=== PATIENT | female | born 1970 | race Caucasian/White ===

== ENCOUNTER 2020-02-29 08:30 | Outpatient (CLI) | payer OTHER, SELFPAY ==
--- NOTE | ~2020-02-29 | MM_ITS ---
EXAMINATION: MM screening [facility] w eladia HISTORY: Screening TECHNIQUE: Craniocaudal and mediolateral oblique 3-D tomosynthesis images were obtained and synthetic 2-D images were generated. CAD analysis was submitted and interpreted. COMPARISON: No prior mammogram is available for comparison at this institution. BREAST PARENCHYMAL COMPOSITION: The breasts are heterogeneously dense, which may obscure small masses . FINDINGS: There is no evidence of suspicious mass, calcification, or architectural distortion to sugg est malignancy in either breast. There has been no suspicious interval change. IMPRESSION: 1. No mammographic evidence of malignancy. 2. Recommend routine screening mammography in one year. BI-RADS Category 1: Negative Reviewed, dictated and finalized at location A. OR MARKETING ENGINEER
== END 2020-02-29 08:31 | disposition home or self-care (01) ==
LOC: ANHIMG 08:32
PROVIDERS: PCP Family Medicine; Visit Provider Nurse Practitioner
DX: Z12.31 Encounter for screening mammogram for malignant neoplasm of breast (principal)
CPT/HCPCS: 77063; 77067

== ENCOUNTER 2021-09-01 01:41 | Day surgery (SDC) | payer OTHER, SELFPAY ==
[2021-08-14 13:22] VITALS: BMI 23.5
[2021-09-01 06:20] VITALS: BP 128/63; PULSE 62; RESP 18; TEMP 36.4; O2SAT 98; BMI 24.0
[2021-09-01] MEDS: LACTATED RINGERS 1,000 ML 150 ML IV CONT (06:42)
--- NOTE | 2021-09-01 07:26 | WPDANESEPPF ---
Anes - Initial Pre Proc Eval Procedure: Operation Date: 09/01/21 07:30 Proposed Procedures p Screening Colonoscopy - Italo Bishop MD Date/Time: 09/01/21 07:26 Surgeon: Italo Bishop MD Pre Op Diagnosis: neoplasm screening Patient Data Age: 51 Gender: F Height: 1.7 m Weight: 69.7 kg Last Vital Signs Temp 97.5 F L 09/01/21 06:20 Pulse 62 09/01/21 06:20 Resp 18 09/01/21 06:20 BP 128/63 09/01/21 06:20 Pulse Ox 98 09/01/21 06:20 O2 Del Method Room Air 09/01/21 06:20 Allergies Allergy/AdvReac Type Severity Reaction Status Date / Time No Known Allergies Allergy Verified 09/01/21 06:24 Home Medications Medication Instructions Recorded Confirmed Type No Home Medications 09/01/21 09/01/21 History Patient hx anesthesia problems: none Family hx anesthesia problems: none Results Review: All pre-operative results and documents have been reviewed as part of the pre-operative evaluation. [facility] Past Medical History Medical History (Updated 09/01/21 @ 07:27 by Italo Bishop MD) Colon cancer screening Family History Family History (Updated 11/19/13 @ 07:13 by DOCTOR UNKNOWN) Father Family history of elevated blood lipids Grandparent Diabetes mellitus Social History Social History (Updated 09/08/19 @ 15:29 by Zhane Marshall) Smoking status: Never smoker Second hand tobacco smoke exposure: No Alcohol intake: never Alcohol use details: occasional Substance use: never Substance use type: does not use Living arrangements: with family Gender identity (if verbalized by the patient): Female Spiritual care concerns: No Anes - Eval Final PreProcedure Day of Procedure 09/01/21 07:26 Patient weight: normal Heart: regular rate and rhythm Lungs: clear to auscultation Airway: Mallampati scale class II Neurological: alert and oriented Last oral intake: >/= 8 hours ASA classification: II Emergent: no Anesthetic plan: proceed Anesthesia type and monitoring: general GIVS and standard monitoring Results Review: All pre-operative results and documents have been reviewed as part of the pre-operative evaluation. Informed Consent: The patient's anesthetic plan and its attendant risks and benefits were discussed with the patient/family/POA. Questions were solicited and answers provided to the satisfaction of the patient/family/POA.
--- NOTE | 2021-09-01 07:26 | PM.HPGS ---
History of Present Illness History of Present Illness Consent: Risks, benefits, and alternatives have been discussed and questions answered. Patient agrees to proceed with procedure. Chief complaint: neoplasm screening Narrative: Zhane Augustin is a 51 year old female here for first screening colonoscopy Review of Systems Constitutional: Constitutional: Denies headache(s) and Denies weakness Eyes: Eyes: Denies blurry vision ENT: Reports Normal hearing present, Denies headache(s) and Denies neck pain Cardiovascular: Cardiovascular: Denies chest pain and Denies dyspnea Respiratory: Respiratory: Denies dyspnea Gastrointestinal: Gastrointestinal: Reports no additional gastrointestinal complaints Genitourinary: Genitourinary: Denies dysuria Musculoskeletal: Musculoskeletal: Denies neck pain Integumentary/Breasts: Skin/Breast: Denies dry skin Neurologic: Reports Normal hearing present, Denies headache(s) and Denies weakness Psychiatric: Psychiatric: Denies anxiety Endocrine: Endocrine: Denies change in body appearance Hematologic/Lymphatic: Hematologic/Lymphatic: Denies easy bleeding Allergic/Immunologic: Allergic/Immunologic: Denies urticaria PMF Past Medical History Medical History (Updated 09/01/21 @ 07:27 by Italo Bishop MD) Colon cancer screening Family History Family History (Updated 11/19/13 @ 07:13 by DOCTOR UNKNOWN) Father Family history of elevated blood lipids Grandparent Diabetes mellitus Social History Social History (Updated 09/08/19 @ 15:29 by Zhane Marshall) Smoking status: Never smoker Second hand tobacco smoke exposure: No Alcohol intake: never Alcohol use details: occasional Substance use: never Substance use type: does not use Living arrangements: with family Gender identity (if verbalized by the patient): Female Spiritual care concerns: No Meds Home Medications and Allergies Home Medications Medication Instructions Recorded Confirmed Type No Home Medications 09/01/21 09/01/21 History Allergies Allergy/AdvReac Type Severity Reaction Status Date / Time No Known Allergies Allergy Verified 09/01/21 06:24 Vital Signs Vital Signs - 24 hr 09/01/21 06:20 Temperature 97.5 F L Pulse Rate 62 Respiratory Rate 18 Blood Pressure 128/63 Pulse Oximetry 98 Oxygen Delivery Room Air Exam Const: General: comfortable and no acute distress HENMT: General nose exam: Normal nares present Eyes: General: appearance normal, both eyes and all related structures Neck: Neck: no JVD Resp: Auscultation: clear to auscultation bilaterally Cardio: Rate: regular rate Rhythm: regular rhythm GI: Inspection: non-distended GI Palp: Yes Soft to palpation Skin: General skin exam: normal color Neuro: General: gait normal Speech: normal speech Extrem: General: normal to inspection Psych: Mental Status: mental status grossly normal Assessment and Plan Assessment and plan (1) Colon cancer screening: Code(s): Z12.11 - Encounter for screening for malignant neoplasm of colon Status: Acute Assessment and Plan: colonoscopy
[2021-09-01 07:43] VITALS: BP 84/43; PULSE 64; RESP 14; O2SAT 98
[2021-09-01 07:53] VITALS: BP 103/55; PULSE 58; RESP 16; O2SAT 100
[2021-09-01 08:03] VITALS: BP 112/61; PULSE 59; RESP 20; O2SAT 100
== END 2021-09-01 08:12 | disposition home or self-care (01) ==
PROVIDERS: PCP Family Medicine; Visit Provider Internal Medicine Gastroenterology
PROC: 0DJD8ZZ Inspection of Lower Intestinal Tract, Via Natural or Artificial Opening Endoscopic (ICD-10-PCS; CPT 45378; principal; 2021-09-01 07:30)
DX: Z12.11 Encounter for screening for malignant neoplasm of colon (principal); K64.8 Other hemorrhoids
CPT/HCPCS: 45378; J2704; J7120

== ENCOUNTER 2021-10-05 17:09 | Outpatient (CLI) | payer OTHER, SELFPAY ==
--- NOTE | ~2021-10-05 | DEXA_ITS ---
Bone Density Report Name: DILLON GIBSON Age: 51 Sex: Female Ethnicity: White Date of : 1970 Indication: postmenopausal; screening for osteoporosis; height loss; Referring Provider: ANDREW, HILARIA Study: Bone densitometry was performed. Exam Date: October 05, 2021 Accession number: [id number] Bone Density: Region BMD T-score Z-score Classification AP Spine(L1-L4) 1.132 0.8 1.5 Normal Femoral Neck (Left) 0.830 -0.2 0.6 Normal Total Hip (Left) 1.025 0.7 1.2 Normal Femoral Neck (Right) 0.793 -0.5 0.3 Normal Total Hip (Right) 1.024 0.7 1.2 Normal Total Hip Mean 1.024 0.7 1.2 Normal World Health Organization criteria for BMD impression classify patients as: Normal (T-score at or above -1.0), Osteopenia (T-score between -1.0 and -2.5), or Osteoporosis (T-score at or below -2.5). 10-year Fracture Risk: FRAX not reported because: All T-scores for Spine Total, Hip Total, Femoral Neck at or above -1.0 Clinical Information Provided by Patient: Patient maximum height was 67 Menopause Age: 48 No regular weight bearing exercise Drinks caffeinated beverages Onset of menses at age 14 Number of children 2 Impression: The patient has normal bone mass. Discussion: BONE DENSITY IS ABOVE THE MINIMUM DESIRABLE LEVEL AT ALL SKELETAL SITES TESTED. This patient?s bone mineral density is above the minimum desirable level (T-score -1.0 or better) at all sites measured. The patient should follow a healthful lifestyle (good nutrition with adequate calcium and vitamin D, and appropriate weight-bearing exercise). Follow-Up: Consider repeating this study in 5 years or sooner if there is some new clinical indication. Reported by: [facility] on 10/05/2021 5:34:00 PM. Reviewed, dictated and finalized at location A. [facility]
--- NOTE | ~2021-10-05 | MM_ITS ---
EXAMINATION: MM screening [facility] BI w eladia HISTORY: Screening mammogram TECHNIQUE: Craniocaudal and mediolateral oblique 3-D tomosynthesis images were obtained and synthetic 2-D images were generated. CAD analysis was submitted and interpreted. COMPARISON: 02/29/2020, 12/18/2018, 05/20/2018, 11/15/2017 BREAST PARENCHYMAL COMPOSITION: The breasts are heterogeneously dense, which may obscure small masses . FINDINGS: There is no suspicious mass, calcification, or architectural distortion to suggest malignan cy in either breast. There has been no suspicious interval change. IMPRESSION: 1. No mammographic evidence of malignancy. 2. Recommend routine screening mammography in one year. BI-RADS Category 1: Negative Reviewed, dictated and finalized at location A.
== END 2021-10-05 17:10 | disposition home or self-care (01) ==
LOC: ANHIMG 17:13
PROVIDERS: PCP Family Medicine; Visit Provider Nurse Practitioner
DX: Z12.31 Encounter for screening mammogram for malignant neoplasm of breast (principal); Z13.820 Encounter for screening for osteoporosis
CPT/HCPCS: 77063; 77067; 77080

== ENCOUNTER 2023-01-17 07:54 | Outpatient (CLI) | payer OTHER, SELFPAY ==
--- NOTE | ~2023-01-17 | MM_ITS ---
EXAMINATION: MM screening [facility] w eladia HISTORY: Screening mammogram TECHNIQUE: Craniocaudal and mediolateral oblique 3-D tomosynthesis images were obtained and synthetic 2-D images were generated. CAD analysis was submitted and interpreted. COMPARISON: 10/05/2021, 02/29/2020, 12/18/2018 screening mammogram examinations BREAST PARENCHYMAL COMPOSITION: The breasts are heterogeneously dense, which may obscure small masses . FINDINGS: There is a biopsy marker on the left; history of prior benign left breast biopsy. There is no evidence of suspicious mass, calcification, or architectural distortion to suggest malignancy in e ither breast. There has been no suspicious interval change. IMPRESSION: 1. No mammographic evidence of malignancy. 2. Recommend routine screening mammography in one year. BI-RADS Category 1: Negative Reviewed, dictated and finalized at location A.
== END 2023-01-17 07:55 | disposition home or self-care (01) ==
PROVIDERS: PCP Family Medicine; Visit Provider Nurse Practitioner
DX: Z12.31 Encounter for screening mammogram for malignant neoplasm of breast (principal)
CPT/HCPCS: 77063; 77067

== ENCOUNTER → 2023-09-17 13:18 | Outpatient (REF) | payer OTHER, SELFPAY | LOC: ANHLAB 13:18 | PROVIDERS: PCP Family Medicine; Visit Provider Plastic Surgery | DX: Z00.00 Encounter for general adult medical examination without abnormal findings (principal); D18.01 Hemangioma of skin and subcutaneous tissue | CPT/HCPCS: 88305 ==

== ENCOUNTER 2024-01-02 11:30 | Outpatient (CLI) | payer OTHER, SELFPAY ==
--- NOTE | ~2024-01-02 | XR_ITS ---
3 VIEWS LUMBAR SPINE Ordering provider: Gilda Bills MD History: . M54.50 - Low back pain, unspecified- LEFT SIDE PINCHING . Comparison: None. FINDINGS: VERTEBRAL BODIES: No visible fracture or subluxation. Nonunited apophysis in the superior endplate of L2 anteriorly. DISK SPACES: Narrowing of the disc L4-L5. Facet joint disease at the level of L3-4, L4-L5 and L5-S1. SOFT TISSUES: Normal. IMPRESSION: No acute osseous abnormality lumbar spine. Degenerative disc disease at the level of L4-L5. Reviewed, dictated and finalized at location A.
== END 2024-01-02 11:31 | disposition home or self-care (01) ==
LOC: ANHIMG 11:34
PROVIDERS: PCP Family Medicine; Visit Provider Family Medicine
DX: M51.369 Other intervertebral disc degeneration, lumbar region without mention of lumbar back pain or lower extremity pain (principal)
CPT/HCPCS: 72110

== ENCOUNTER 2024-01-20 07:20 | Outpatient (CLI) | payer OTHER, SELFPAY ==
--- NOTE | ~2024-01-20 | MM_ITS ---
EXAMINATION: MM screening [facility] BI w eladia HISTORY: Screening mammogram TECHNIQUE: Craniocaudal and mediolateral oblique 3-D tomosynthesis images were obtained and synthetic 2-D images were generated. CAD analysis was submitted and interpreted. COMPARISON: 01/17/2023, 10/05/2021, 02/29/2020 BREAST PARENCHYMAL COMPOSITION:Not Dense. There are scattered areas of fibroglandular density. FINDINGS: No suspicious mass, calcification, or architectural distortion are identified in either padmini ast to suggest malignancy. There has been no suspicious interval change. IMPRESSION: No mammographic evidence of malignancy. Recommend routine screening mammography in one year. BI-RADS Category 1: Negative Reviewed, dictated and finalized at location .
== END 2024-01-20 07:21 | disposition home or self-care (01) ==
LOC: ANHIMG 07:21
PROVIDERS: PCP Family Medicine; Visit Provider Nurse Practitioner
DX: Z12.31 Encounter for screening mammogram for malignant neoplasm of breast (principal)
CPT/HCPCS: 77063; 77067

== ENCOUNTER 2024-09-30 12:51 | Outpatient (CLI) | payer OTHER, SELFPAY ==
--- NOTE | ~2024-09-30 | MMUS_ITS ---
EXAMINATION: US breast LT limited, MM diagnostic payton LT w eladia HISTORY: Palpable left breast lump TECHNIQUE: Additional 3-D tomosynthesis images of the left breast were performed and synthetic 2-D im ages were generated. CAD analysis was submitted and interpreted. High resolution Limited left breast ultrasound was performed. COMPARISON: Comparison to multiple prior studies sequentially, with oldest reviewed study dated 12/18. BREAST PARENCHYMAL COMPOSITION: Not dense: There are scattered areas of fibroglandular density. FINDINGS: MAMMOGRAPHIC FINDINGS: There are no new masses, calcifications or architectural distortion in the left breast to suggest mal ignancy. ULTRASOUND: Limited left breast ultrasound: At 7:00, 6 cm from the nipple there is an oval circumscribed hyperech oic mass measuring 1.1 x 1.1 x 0.5 cm with parallel orientation, no internal vascularity and no poste rior features, most compatible with benign lipoma. No suspicious masses to suggest malignancy. IMPRESSION: 1. No evidence for malignancy in the left breast. 2. Routine yearly screening mammogram and regular clinical breast examination are recommended. BI-RADS Category 2: Benign finding(s). Reviewed, dictated and finalized at location A. IMPRESSION: 1. No evidence for malignancy in the left breast. 2. Routine yearly screening mammogram and regular clinical breast examination a re recommended. BI-RADS Category 2: Benign finding(s).
--- OUTSIDE RECORDS SUMMARY | 2024-09-30 12:59 | XMS_ITS | Clinical Summary ---
Author Organization [facility] Address [facility] [place] [address] Care Team Providers Care Wire Stitcher Machine Name Role Phone Bradford Schilling MD Primary Care Provider [phone] Allergies No known active allergies Medications pravastatin (PRAVACHOL) 20 MG tabletIndications:M ixed hyperlipidemia Take 1 tablet (20 mg total) by mouth nightly at bedtime. 90 tablet 1 5 Active gabapentin (NEURONTIN) 100 MG capsuleIndications: Chronic midline low back pain with bilateral sciatica Take 1 capsule (100 mg total) by mouth nightly. 90 capsule 5 Active celecoxib (CELEBREX) 200 MG capsuleIndications: Chronic midline low back pain with bilateral sciatica Take 1 capsule (200 mg total) by mouth 2 (two) times daily as needed for Pain. 180 capsule 5 Active Active Problems Problem Noted Date Diagnosed Date Chronic midline low back pain with left-sided sc iatica 03/11/2024 Mixed hyperlipidemia 03/11/2024 Encounters Date Type Department Care Team Description 09/11/2024 Results Follow-Up [facility] Multispecialty Care - [address] [place] [address] Odalys Watters NP MRI LUMB SPINE WO CON 09/02/2024 12:43 PM CDT - 09/02/2024 11:59 PM CDT Hospital Encounter [facility] MRI [address] [place] [address] Bradford Schilling MD Discharge Disposition: Home or Self Care (Routine Discharge) 09/02/2024 Travel 08/26/2024 9:30 AM CDT Office Visit [facility] Physical [facility] [address] [address] Bradford Schilling MD Tolle, Lisa C, PT Lumbar Radiculopathy 08/26/2024 Travel 08/05/2024 8:00 AM CDT Office Visit [facility] Multispecialty Care [place] [address] [facility] [address] [place] [address] Bradford Schilling MD Follow Up; Back Pain; Mass (On breast left noticed a week ago ) 08/05/2024 Travel 07/29/2024 3:45 PM CDT Office Visit [facility] Physical [facility] [address] [address] Bradford Schilling MD Tolle, Lisa C, PT Back Pain 07/29/2024 Travel 07/22/2024 12:45 PM CDT Office Visit [facility] Physical [facility] [address] [address] Bradford Schilling MD Tolle, Lisa C, PT Back Pain 07/22/2024 Travel 07/15/2024 8:45 AM CDT Office Visit [facility] Physical Therapy [address] [address] Bradford Schilling MD Tolle, Lisa C, PT Back Pain 07/15/2024 Travel 07/08/2024 8:45 AM CDT Office Visit [facility] Physical [facility] [address] [address] Bradford Schilling MD Tolle, Lisa C, PT Back Pain 07/08/2024 Travel 07/01/2024 8:45 AM CDT Office Visit [facility] [address] [place] [address] Bradford Schilling MD Tolle, Lisa C, PT Back Pain 07/01/2024 Travel from Last 3 Months Immunizations Immunization Administration Dates Next Due Influenza Adult (Generic) 01/17/2022,01/31/2021 Tdap (Generic) 09/06/2020 Social History Tobacco Use Types Packs/Day Years Used Date Smoking Tobacco: Never Smokeless Tobacco: Never Tobacco Cessation:Counseling Given: Yes Comments:Counseled by Dr. Schilling. Alcohol Use Standard Drinks/Week Comments Yes 5.3 (1 standard drink = 0.6 oz p ure alcohol) socially/occasional AUDIT-C Answer Date Recorded Q1: How often do you have a drink containing alc ohol? Monthly or less 03/11/2024 Q2: How many drinks containi ng alcohol do you have on a typical day when you are drinking? 3 or 4 03/11/2024 Q3: How often do you have si x or more drinks on one occasion? Never 03/11/2024 PHQ-2 Answer Date Recorded Patient Health Questionnaire-2 Score 0 08/05/2024 Comments No Sex and Gender Information Value Date Recorded Sex Assigned at Female 08/05/2024 8:03 AM CDT Legal Sex Female 9:50 AM CDT Gender Identity Female 08/05/2024 8:03 AM CDT Sexual Orientation Straight 08/05/2024 8: 03 AM CDT Last Filed Vital Signs Vital Sign Reading Time Taken Comments Blood Pressure 110/62 08/05/2024 8:04 AM CDT Pulse 60 08/05/2024 8:04 AM CDT Temperature 36.9 C (98.5 F) 08/05/2024 8:04 AM CDT Respiratory Rate 16 08/05/2024 8:04 AM CDT Oxygen Saturation 98% 08/05/2024 8:04 AM CDT Inhaled Oxygen Concentration - - Weight 69.9 kg (154 lb 3.2 oz) 08/05/2024 8:04 A M CDT Height 170.2 cm (5' 7) 08/05/2024 8:04 AM CDT Body Mass Index 24.15 08/05/2024 8:04 AM CDT Plan of Treatment Upcoming Encounters Date Type Department Care Team (Late st Contact Info) Description 12/09/2024 8:20 AM CDT Office Visit [facility] Multispecialty Care - [address] [place] [address] Bradford Schilling MD [address] [facility] [address] [place] [address] Health Maintenance Due Date Last Done Comments Hepatitis B Vaccines (1 of 3 - 19+ 3-dose series) 1990 Cervical Cancer Screening Pa p with HPV Testing (Age 30 to 64) Every 5 Years 2001 Pneumococcal Vaccine: 50+ Ye ars (1 of 1 - PCV) 2021 Zoster Vaccines (1 of 2) 2021 COVID-19 Vaccine (2 - 2023-2 5 season) 2023 08/11/2020 Annual Physical 03/11/2025 03/11/2024 Mammogram Screening 01/19/2026 01/20/2024 Cervical Cancer Screening Pa p Smear (Age 30 to 64) Every 3 Years 08/04/2026 08/05/2023 Cervical Cancer Screening with HPV 08/04/2026 DTaP, Tdap and Td Vaccines ( 2 - Td or Tdap) 09/06/2030 09/06/2020 Colorectal Cancer Screening Colonoscopy (10 Years) 09/02/2031 09/01/2021 Hepatitis C Completed 03/11/2024 PHQ-2 (Physician [place]) Completed 08/05/2024 Meningococcal B Vaccine Aged Out No l onger eligible based on patient's age to complete this topic Meningococcal Vaccine Aged Out No cyril toya eligible based on patient's age to complete this topic RSV Immunizations Under 20 Months Aged Out No longer eligible based on patient's age to complete this topic Procedures Procedure Name Priority Date/Time Associated Diagnosis Comments MRI LUMB SPINE WO CON Routine 09/02/2024 1:19 PM CDT Chronic midline low back pain with bilateral sciatica HEPATITIS C ANTIBODY Routine 03/11/2024 11:37 AM VOCATIONAL AIDE Annual physical exam Establishing care with new doctor, encounter for General medical exam Encounter for hepatitis C screening test for low risk patient Drug therapy MAMMOGRAM GENERIC (SCAN ORDER) 01/20/2024 OUTSIDE CYTOPATH CERV/VAG INTERPRET (PAP) (SCAN ORDER) 08/05/2023 COLONOSCOPY GENERIC (SCAN ORDER) 09/01/2021 from Last 3 Months or Most Recently Relevant to Health Maintenance Results * MRI LUMB SPINE WO CON (09/02/2024 1:19 PM CDT) Anatomical Region Laterality Modality Spine Magnetic Resonan ce 09/09/2024 8:55 PM CDT Impressions 09/09/2024 8:59 PM CDT IMPRESSION: 1. Multilevel degenerative changes in the lumbar spine, as detailed above. Referred By: BRADFORD SCHILLING Interpreted By: Von Zapata MD, 09/09/2024 8:55 PM Narrative 09/09/2024 8:[address] PM [address]T [address] [address] INDICATION: Pain and numbness in left lower leg. EXAMINATION: MRI lumbar spine without contrast. TECHNIQUE: Multiplanar and multisequence MRI images of the lumbar spine were obtained without contrast. COMPARISON: None FINDINGS: There are 5 lumbar type vertebral bodies designated as L1 through L5; using this numbering system, the conus medullaris terminates at T12-L1 and appears unremarkable. There is slight anterolisthesis of L4 on L5. Otherwise the lumbar vertebral alignment, vertebral body heights, and facet alignment are maintained. Possible degenerative synovial cyst along the anterior aspects of the L4-L5 facet articulations, larger on the left. Additional synovial cyst seen along the posterior aspect of the L4-L5 facets. Multilevel degenerative changes are evident in the lumbar spine with disc degeneration, endplate osteophytes, ligamentum flavum thickening, and facet hypertrophy noted. Multilevel disc desiccation. Imaged portions of the soft tissues reveal no acute findings. Small right renal cysts. T12-L1: Tiny disc bulge. Mild ligamentous and facet hypertrophy. No canal or foraminal narrowing. L1-L2: Disc bulge with extension into the foramina. Mild ligamentous and facet hypertrophy. No canal or foraminal narrowing. L2-L3: Tiny disc bulge. Mild ligamentous and facet hypertrophy. No canal or foraminal narrowing. L3-L4: Mild disc bulge with extension into the foramina. Ligamentous and facet hypertrophy. No canal or foraminal narrowing. L4-L5: Slight anterolisthesis. Disc bulge with extension into the foramina. Possible degenerative synovial cysts along the anterior aspects of the facet articulations, larger on the left. Additional synovial cysts suggested along the posterior aspects of the bilateral L4-L5 facet articulations. Ligamentum flavum thickening. Prominent facet arthropathy with bilateral facet joint synovial effusions. Mild canal stenosis. Asymmetric encroachment of the left lateral recess. Minimal if any foraminal narrowing. L5-S1: Mild disc bulge. Facet hypertrophy. No significant canal or foraminal narrowing. Procedure Note Von Zapata MD - 09/09/[address] [address] INDICATION: Pain and numbness in left lower leg. EXAMINATION: MRI lumbar spine without contrast. TECHNIQUE: Multiplanar and multisequence MRI images of the lumbar spine were obtainedwithout contrast. COMPARISON: None FINDINGS: There are 5 lumbar type vertebral bodies designated as L1 through L5;using this numbering system, the conus medullaris terminates at T12-L1 andappears unremarkable. There is slight anterolisthesis of L4 on L5. Otherwise the lumbarvertebral alignment, vertebral body heights, and facet alignment aremaintained. Possible degenerative synovial cyst along the anterior aspectsof the L4-L5 facet articulations, larger on the left. Additional synovialcyst seen along the posterior aspect of the L4-L5 facets. Multileveldegenerative changes are evident in the lumbar spine with discdegeneration, endplate osteophytes, ligamentum flavum thickening, andfacet hypertrophy noted. Multilevel disc desiccation. Imaged portions of the soft tissues reveal no acute findings. Small rightrenal cysts. T12-L1: Tiny disc bulge. Mild ligamentous and facet hypertrophy. No canalor foraminal narrowing. L1-L2: Disc bulge with extension into the foramina. Mild ligamentous andfacet hypertrophy. No canal or foraminal narrowing. L2-L3: Tiny disc bulge. Mild ligamentous and facet hypertrophy. No canalor foraminal narrowing. L3-L4: Mild disc bulge with extension into the foramina. Ligamentous andfacet hypertrophy. No canal or foraminal narrowing. L4-L5: Slight anterolisthesis. Disc bulge with extension into theforamina. Possible degenerative synovial cysts along the anterior aspectsof the facet articulations, larger on the left. Additional synovial cystssuggested along the posterior aspects of the bilateral L4-L5 facetarticulations. Ligamentum flavum thickening. Prominent facet arthropathywith bilateral facet joint synovial effusions. Mild canal stenosis.Asymmetric encroachment of the left lateral recess. Minimal if anyforaminal narrowing. L5-S1: Mild disc bulge. Facet hypertrophy. No significant canal orforaminal narrowing. IMPRESSION: 1. Multilevel degenerative changes in the lumbar spine, as detailedabove. Referred By: BRADFORD SCHILLING Interpreted By: Von Zapata MD, 09/09/2024 8:55 PM Bradford Schilling MD MRI Final Result * HEPATITIS C ANTIBODY (03/11/2024 11:37 AM VOCATIONAL AIDE) HEPATITIS C AB NON-REACTI VE NON-REACT ROXY 03/11/2024 10:05 PM VOCATIONAL AIDE [facility] Comment: ANTIBODIES TO HCV NOT DETECTED. DOES NOT EXCLUDE THE POSSIBILITY OF EXPOSURE TO HCV. 03/11/2024 11:3 7 AM VOCATIONAL AIDE Bradford Schilling MD LABORATORY Final Result [facility] [address] [place] [address], [id number] * MAMMOGRAM GENERIC (SCAN ORDER) (01/20/2024) Anatomical Region Laterality Modality Other 01/20/2024 us [facility] Scanned SCANNING Final Resu lt * PAP SMEAR (SCAN ORDER) (08/05/2023) 08/05/2023 [facility] Scanned SCANNING Final Resu lt * COLONOSCOPY GENERIC (SCAN ORDER) (09/01/2021) 09/01/2021 [facility] Scanned SCANNING Final Resu lt from Last 3 Months or Most Recently Relevant to Health Maintenance Insurance Care Teams Wire Stitcher Machine Relationship Specialty Start Date End Date Bradford Schilling MD [address] [facility] [address] [place], [place] [id number] PCP - General INTERNAL MEDICINE 01/07/24
--- OUTSIDE RECORDS SUMMARY | 2024-09-30 12:59 | XMS_ITS | Encounter Summary ---
Author Organization [facility] Address Formerly [facility], [facility] [place] [address] Care Team Providers Care Business Architect Name Role Phone Bradford Schilling MD Primary Care Provider [phone] Encounter Details Date Type Department Care Team (Latest Contact Info) Description 06/10/2024 AudioEye Message [facility] [place] [address] [id number] Tania, [facility] Provider Pain Management Referral Social History Tobacco Use Types Packs/Day Years Used Date Smoking Tobacco: Never Smokeless Tobacco: Never Comments:Counseled by Dr. Elvira house. Alcohol Use Standard Drinks/Week Comments Yes 5.3 [...] Date Recorded Patient Health Questionnaire-2 Score 0 03/11/2024 Comments No Sex and Gender Information Value Date Recorded Sex Assigned at Female 08/05/2024 8:03 AM CDT Legal Sex Female 9:50 AM CDT Gender Identity Female 08/05/2024 8:03 AM CDT Sexual Orientation Straight 08/05/2024 8: 03 AM CDT documented as of this encounter Plan of Treatment Upcoming Encounters Date Type Department Care Team (Late st Contact Info) Description 12/09/2024 8:20 AM CDT Office Visit [facility] - [place] [address] [address] [place] [address] Bradford Schilling MD [facility] [address] [address] documented as of this encounter Visit Diagnoses Not on filedocumented in this encounter Additional Health Concerns Assessment Noted Time PHQ-9 Depression Total Score: 2 03/11/20 24 12:07 PM CUSTOMER TECHNICAL SERVICES MANAGER documented as of this encounter Care Teams Business Architect Relationship Specialty Start Date End Date Bradford Schilling MD [address] [place] [id number] PCP - General INTERNAL MEDICINE 01/07/24 documented as of this encounter
--- OUTSIDE RECORDS SUMMARY | 2024-09-30 12:59 | XMS_ITS | Encounter Summary ---
Author Organization [facility] Address [facility] [place] [address] Care Team Providers Care Account Manager [employer] Name Role Phone Bradford Schilling MD Primary Care Provider [phone] Encounter Details Date Type Department Care Team (Latest Contact Info) Description 09/11/2024 Results Follow-Up [facility] - [place] [address] [place] [address] Odalys Watters, DATAPOWER CONSULTANT [address] [place] [address] MRI LUMB SPINE WO CON Social History Tobacco Use Types Packs/Day Years [...] Description 12/09/2024 8:20 AM CDT Office Visit [facility] - [place] [address] [address] [place] [address] Bradford Schilling MD [address] [place] [phone] documented as of this encounter Visit Diagnoses Not on filedocumented in this encounter Additional Health Concerns Assessment Noted Time PHQ-9 Depression Total Score: 1 08/06/19 25 8:37 AM CDT documented as of this encounter Care Teams Account Manager [employer] Relationship Specialty Start Date End Date Bradford Schilling MD [address] [place] [id number] PCP - General INTERNAL MEDICINE 01/07/24 documented as of this encounter
== END 2024-09-30 12:52 | disposition home or self-care (01) ==
LOC: ANHIMG 12:56
PROVIDERS: PCP Internal Medicine; Visit Provider Internal Medicine
DX: N63.24 Unspecified lump in the left breast, lower inner quadrant (principal)
CPT/HCPCS: 76642; 77061; 77065; G0279